=== PATIENT | female | born 1995 | race Caucasian/White ===

== ENCOUNTER 2022-01-27 09:37 | Outpatient (CLI) | payer BC, SELFPAY ==
[2022-01-27 09:53] LABS: Albumin* 4.4 g/dL (3.3-5.0); Chloride* 105 mmol/L (96-114); Potassium* 4.4 mmol/L (3.6-5.1); Sodium* 140 mmol/L (135-149)
[2022-01-27 09:55] LABS: Carbon Dioxide* 28 mmol/L (20-32); Cholesterol* 148 mg/dL (90-199); Creatinine* 0.7 mg/dL (0.5-1.5); Estimated Glomerular Filt Rate 122 ml/min
[2022-01-27 09:56] LABS: Alanine Aminotransferase* 21 U/L (4-35); Alkaline Phosphatase* 57 U/L (40-150); Aspartate Amino Transferase* 23 U/L (12-35); Bilirubin Total* 0.4 mg/dL (0.1-1.5); Blood Urea Nitrogen* 15 mg/dL (5-24); Calcium* 9.3 mg/dL (8.4-10.6); Glucose* 84 mg/dL (60-115); Total Protein* 7.5 g/dL (6.0-8.3); Triglycerides* 151 mg/dL (40-149)
[2022-01-27 09:57] LABS: HDL Cholesterol* 52 mg/dL (>=50); LDL Cholesterol Calculated 66 mg/dL (<100)
== END 2022-01-27 09:38 | disposition home or self-care (01) ==
PROVIDERS: PCP Family Medicine; Visit Provider Family Medicine
DX: Z01.419 Encounter for gynecological examination (general) (routine) without abnormal findings (principal); E78.5 Hyperlipidemia, unspecified; E66.9 Obesity, unspecified; F41.9 Anxiety disorder, unspecified
CPT/HCPCS: 80053; 80061

== ENCOUNTER 2022-04-19 15:02 | Outpatient (CLI) | payer BC, SELFPAY ==
--- NOTE | 2022-04-19 15:20 | CRLHL7_ITS ---
For Patients: As a result of the Cures Act, medical imaging exams and procedure reports are released immediately into your electronic medical record. You may view this report before your referring provider. If you have questions, please contact your health care provider. BILATERAL DIGITAL SCREENING MAMMOGRAM WITH TOMOSYNTHESIS AND COMPUTER-AIDED DETECTION CLINICAL HISTORY: Routine screening exam. COMPARISON: None. TECHNIQUE: Digital mammogram in CC and MLO projections including computer-aided detection (CAD). Tomosynthesis utilized. BREAST COMPOSITION: The breasts are heterogeneously dense, which may obscure small masses. FINDINGS: RIGHT Breast: Nodular density 12 o`clock RIGHT breast 2 cm from the nipple. LEFT Breast: No suspicious findings. IMPRESSION: RIGHT breast asymmetry/mass. RECOMMENDATIONS: Additional mammographic views of the RIGHT breast including 3D spot compression CC/MLO. RIGHT breast ultrasound may also be required. BI-RADS Category 0: Incomplete: Need Additional Imaging Evaluation and/or Prior Mammograms for Comparison [facility] will contact the patient for follow-up. A lay language report of this examination will be provided to the patient. Dictated by Eliel Amaya MD @ 04/20/2022 1:03:33 PM [place]/Dictated by: Eliel Amaya MD @ 04/20/2022 12:59:00 PM (Electronically Signed)
== END 2022-04-19 15:03 | disposition home or self-care (01) ==
LOC: MAMMO 15:02
PROVIDERS: PCP Family Medicine; Visit Provider Family Medicine
DX: Z12.31 Encounter for screening mammogram for malignant neoplasm of breast (principal); N63.10 Unspecified lump in the right breast, unspecified quadrant; R92.2 Inconclusive mammogram
CPT/HCPCS: 77063; 77067

== ENCOUNTER 2022-04-26 08:29 | Outpatient (CLI) | payer BC, SELFPAY ==
--- NOTE | 2022-04-26 08:45 | CRLHL7_ITS ---
For Patients: As a result of the Century Cures Act, medical imaging exams and procedure reports are released immediately into your electronic medical record. You may view this report before your referring provider. If you have questions, please contact your health care provider. DIGITAL DIAGNOSTIC RIGHT MAMMOGRAM USING TOMOSYNTHESIS AND COMPUTER-AIDED DETECTION RIGHT BREAST ULTRASOUND CLINICAL HISTORY: RIGHT breast mass/asymmetry. COMPARISON: 04/19/2022. TECHNIQUE: Digital RIGHT mammogram in two projections. Tomosynthesis and CAD utilized. Real-time ultrasound imaging of RIGHT breast with imaging documentation. BREAST COMPOSITION: The breast is heterogeneously dense, which may obscure small masses. FINDINGS: 3D spot compression CC/MLO RIGHT breast mammogram images submitted. Nodular density 12 o`clock 2 cm from the nipple with circumscribed margins. No architectural distortion. No suspicious calcifications. Targeted RIGHT breast ultrasound performed 12 o`clock 2 cm from the nipple. In this location there is a circumscribed ovoid hypoechoic nodule measuring 1.3 x 0.7 x 0.9 cm. Increased through-transmission is present. IMPRESSION: Mammogram and ultrasound exams are consistent with benign fibroadenoma RIGHT breast 12 o`clock 2 cm from the nipple measuring 1.3 cm. RECOMMENDATIONS: Because of the family history of her mom passing away a breast cancer at age 36, recommend entry into the high-risk registry and consideration of genetic testing for BRCA mutation and possible screening with breast MRI/digital screening tomosynthesis. The patient met with the Breast graphic coordinator following the ultrasound. BI-RADS Category 2: Benign A lay language report of this examination will be provided to the patient. Dictated by Eliel Amaya MD @ 04/26/2022 10:04:28 AM jj/Dictated by: Eliel Amaya MD @ 04/26/2022 10:04:00 AM (Electronically Signed)
--- NOTE | 2022-04-26 09:15 | CRLHL7_ITS ---
For Patients: As a result of the Cures Act, medical imaging exams and procedure reports are released immediately into your electronic medical record. You may view this report before your referring provider. If you have questions, please contact your health care provider. PLEASE SEE DIGITAL DIAGNOSTIC RIGHT MAMMOGRAM PERFORMED SAME DAY CRL:[email or web address] toscano/Dictated by: Eliel Amaya MD @ 04/26/2022 10:04:00 AM (Electronically Signed)
== END 2022-04-26 08:30 | disposition home or self-care (01) ==
LOC: MAMMO 08:29
PROVIDERS: PCP Family Medicine; Visit Provider Family Medicine
DX: N63.10 Unspecified lump in the right breast, unspecified quadrant (principal); R92.8 Other abnormal and inconclusive findings on diagnostic imaging of breast
CPT/HCPCS: 76642; 77065; G0279

== ENCOUNTER 2023-04-21 15:29 | Outpatient (CLI) | payer BC, SELFPAY ==
--- NOTE | 2023-04-21 15:40 | MM_ITS ---
Patient: JAZMIN STEINER Facility:?[facility] Patient ID:?[id number] Site Patient ID:?[id number]. Site :?[id number] Study:?XRay-Breast Bilateral 3D W/CAD-04/21/2023 4:16:21 PM Ordering Physician:Serenity Final Report: BILATERAL SCREENING MAMMOGRAM WITH COMPUTER-AIDED DETECTION AND TOMOSYNTHESIS TECHNIQUE: CC and MLO views were obtained. These mammographic images have been obtained using full-field digital technique. These mammographic images were interpreted with the benefit of computer-aided detection. Breast Tomosynthesis was used in this interpretation. COMPARISON FILM: 04/19/22. FINDINGS: The breasts are heterogeneously dense, which may obscure small masses. IMPRESSION: There is no radiographic evidence for malignancy. ASSESSMENT: BI-RADS Category 1: Negative RECOMMENDATION: Routine screening mammogram in 1 year. A lay language report of this examination will be provided to the patient. Eliel Amaya M.D. Diagnostic Radiologist [email or web address] DSM/sp R& Transcribed: 5:35 p.m. SP/Dictated by: Eliel Amaya MD @ 04/22/2023 11:10:00 AM Signed by:?Eliel Amaya MD @04/22/2023 5:39:54 PM (Electronic Signature)
== END 2023-04-21 15:30 | disposition home or self-care (01) ==
LOC: MAMMO 15:30
PROVIDERS: PCP Family Medicine; Visit Provider Family Medicine
DX: Z12.31 Encounter for screening mammogram for malignant neoplasm of breast (principal); R92.2 Inconclusive mammogram; Z80.3 Family history of malignant neoplasm of breast
CPT/HCPCS: 77063; 77067

== ENCOUNTER 2023-08-26 14:30 | Outpatient (CLI) | payer BC, SELFPAY ==
--- OUTSIDE RECORDS SUMMARY | 2023-08-26 14:32 | XMS_ITS | Clinical Summary ---
Author Organization [employer] [facility] Address [place] [address] Care Team Providers Care Letter Sorting Machine Operator Name Role Phone Ivy Mccarthy MD Primary Care Provider + Social History Tobacco Use Types Packs/Day Years Used Date Smoking Tobacco: Never Assessed Sex and Gender Information Value Date Recorded Sex Assigned at Not on file Gender Identity Not on file Sexual Orientation Not on file Plan of Treatment Health Maintenance Due Date Last Done Comments Tdap 05/23/2006 Depression screening for age 12+ 2007 HIV for age 15-65 05/23/2010 BMI (ht and wt on same day) for age 18+ 05/23/2013 Hepatitis C screening for ag e 18-79 05/23/2013 Tetanus booster 2015 Pap test for age 21-65 05/23/2016 COVID-19 vaccine series ( season) 2022 12/05/2021, 04/26/2020, 04/06/2020 Influenza for age 9-49 10/09/2023 Pneumococcal series for age 6-64 Aged Out No longer eligible b ased on patient's age to complete this topic Care Teams Letter Sorting Machine Operator Relationship Specialty Start Date End Date Ivy Mccarthy MD [address] [place] [address] PCP - General Family Practice 03/22/22
== END 2023-08-26 14:31 | disposition home or self-care (01) ==
LOC: NFLDREF 14:31
PROVIDERS: PCP Family Medicine; Visit Provider Family Medicine
DX: R00.2 Palpitations (principal)
CPT/HCPCS: 84443

== ENCOUNTER 2024-02-07 07:30 | Outpatient (CLI) | payer BC, SELFPAY | END 2024-02-07 07:31 | disposition home or self-care (01) | LOC: NFLDREF 02-10 05:19 | PROVIDERS: PCP Family Medicine; Referring Provider Family Medicine; Visit Provider Family Medicine | DX: E78.5 Hyperlipidemia, unspecified (principal); Z13.1 Encounter for screening for diabetes mellitus | CPT/HCPCS: 80061; 82947 ==

== ENCOUNTER 2024-05-04 10:26 | Outpatient (CLI) | payer BC, SELFPAY ==
[2024-05-06 00:32] LABS: HPV Source Cervical/Vag; HPV, High Risk by TMA Not Detected
== END 2024-05-04 10:27 | disposition home or self-care (01) ==
PROVIDERS: PCP Family Medicine; Visit Provider Family Medicine
DX: Z12.4 Encounter for screening for malignant neoplasm of cervix (principal); Z11.51 Encounter for screening for human papillomavirus (HPV)
CPT/HCPCS: 87624; 87625; 88141; 88142

== ENCOUNTER 2024-05-28 15:07 | Outpatient (CLI) | payer BC, SELFPAY ==
--- NOTE | 2024-05-28 15:20 | CRLHL7_ITS ---
For Patients: As a result of the Century Cures Act, medical imaging exams and procedure reports are released immediately into your electronic medical record. You may view this report before your referring provider. If you have questions, please contact your health care provider. INDICATION: BILATERAL SCREENING MAMMOGRAM, ASYMPTOMATIC 29 Y/O FEMALE COMPARISON: 04/21/23, 04/19/22 TECHNIQUE: CC and MLO views were obtained. These mammographic images have been obtained using full-field digital technique. These mammographic images were interpreted with the benefit of computer aided detection and tomosynthesis. BREAST COMPOSITION: There are scattered areas of fibroglandular density. FINDINGS: No suspicious findings. ASSESSMENT: BI-RADS 1 Negative RECOMMENDATION: Annual screening mammogram. A lay language report of this examination will be provided to the patient. Dictated by: Eliel Amaya MD @ 05/29/2024 11:00:21 (Electronically Signed)
== END 2024-05-28 15:08 | disposition home or self-care (01) ==
LOC: MAMMO 15:08
PROVIDERS: PCP Family Medicine; Visit Provider Family Medicine
DX: Z12.31 Encounter for screening mammogram for malignant neoplasm of breast (principal)
CPT/HCPCS: 77063; 77067